=== PATIENT | male | born 1990 | race Caucasian/White ===

== ENCOUNTER 2018-03-12 11:53 | Outpatient (CLI) | payer BC ==
--- NOTE | 2018-03-12 12:25 | RAD ---
THREE VIEWS LEFT HAND: History: Strain and pain. Evaluate left hand for possible fractures. FINDINGS: AP, lateral, and oblique views obtained. Three views of the left hand are unremarkable. No evidence of fractures, subluxations, or bony lesion s seen. IMPRESSION: Normal three views left hand. POS: [facility]
--- NOTE | 2018-03-12 12:26 | RAD ---
THREE VIEWS LEFT WRIST: History: Sprain of left wrist with left wrist pain. FINDINGS: Three views of the left wrist demonstrates no evidence of left wrist fractures, subluxations, or bony lesions. No evidence of acute or chronic bony abnormalities seen. IMPRESSION: Normal three views left wrist. POS: [facility]
== END 2018-03-12 11:54 | disposition home or self-care (01) ==
LOC: RAD 11:53
PROVIDERS: ATTEND Specialist
DX: S66.117A Strain of flexor muscle, fascia and tendon of left little finger at wrist and hand level, initial encounter (principal)